=== PATIENT | male | born 1995 | race Caucasian/White ===

== ENCOUNTER 2017-07-02 14:42 | Outpatient (CLI) | payer OTHER | END 2017-07-02 14:43 | disposition critical access hospital (66) | LOC: EMS 14:42 | PROVIDERS: ATTEND Surgery | DX: R06.00 Dyspnea, unspecified (principal) | CPT/HCPCS: A0425; A0427 ==

== ENCOUNTER 2017-07-02 15:12 | Emergency (ER) | payer OTHER ==
[2017-07-02 15:16] VITALS: BP 147/89
--- NOTE | 2017-07-02 15:18 | ED Physician Documentation ---
PD HPI DYSPNEA - Stated complaint Stated Complaint: ASTHMA ATTACK - History obtained from History obtained from: Patient, EMS - History of Present Illness Timing - onset: How many weeks ago (4) Timing - onset during: Rest Timing - duration: Weeks (4) Timing - details: Gradual onset, Still present, Waxing and waning Inciting event(s): Out of meds, URI Improved by: Inhaler/neb Worsened by: Exertion, Coughing Associated symptoms: Cough, Wheezing, Chest pain / discomfort, Diaphoresis Similar symptoms before: Diagnosis (asthma) Recently seen: Not recently seen - Additional information Additional information: 22-year-old male with a history of asthma has run out of his albuterol inhaler. He is developed a cough and congestion about 1 month ago and symptoms have been waxing and waning in about 3 days ago he developed worsening and worsening shortness of breath and was unable to use an inhaler because he did not have his inhaler. Medics arrived and were able to provide a DuoNeb treatment and 125 mg of Solu-Medrol intravenously and the patient has some marked improvement. Review of Systems Constitutional: reports: Myalgias, Fatigue, Sweats. denies: Fever Eyes: denies: Decreased vision Ears: denies: Ear pain Nose: reports: Rhinorrhea / runny nose, Congestion Throat: denies: Sore throat Cardiac: reports: Chest pain / pressure. denies: Palpitations Respiratory: reports: Dyspnea, Cough, Wheezing GI: denies: Abdominal Pain, Nausea, Vomiting : denies: Dysuria, Frequency PD PAST MEDICAL HISTORY - Present Medications Home Medications: Ambulatory Orders Medication Instructions Recorded Confirmed Albuterol Sulf [Ventolin Hfa 1 - 2 puffs INH Q4HR PRN #1 inhaler 07/02/17 Inhaler] Albuterol Sulfate [Proair Hfa 07/02/17 Inhaler] Azithromycin [Zithromax] 250 mg PO DAILY #6 tablet 07/02/17 Fluticasone Propionate [Flovent 07/02/17 Diskus] Sertraline HCl 07/02/17 predniSONE [Deltasone] 10 mg PO DAILY #26 tablet 07/02/17 - Allergies Allergies/Adverse Reactions: Allergies Allergy/AdvReac Type Severity Reaction Status Date / Time No Known Drug Allergies Allergy Verified 07/02/17 15:16 PD ED PE NORMAL - Vitals Vital signs reviewed: Yes (tachy and hypertensive ) - General General: Alert and oriented X 3, No acute distress, Well developed/nourished - HEENT HEENT: Atraumatic, PERRL, EOMI, Other (The right TM is mildly inflamed and the left is markedly inflamed with loss of landmarks.) - Neck Neck: Supple, no meningeal sign, No bony TTP - Cardiac Cardiac: No murmur, Other (tachy to 110) - Respiratory Respiratory: Other (tachpneic with diminished breath sounds.) - Abdomen Abdomen: Soft, Non tender - Back Back: No CVA TTP, No spinal TTP - Derm Derm: Normal color, Warm and dry, No rash - Extremities Extremities: No deformity, No edema - Neuro Neuro: No motor deficit, No sensory deficit Eye Opening: Spontaneous Motor: Obeys Commands Verbal: Oriented GCS Score: 15 - Psych Psych: Normal mood, Normal affect Results - Vitals Vitals: Vital Signs - 24 hr /08/16 15:13 Temperature 36.4 C L Heart Rate 118 H Respiratory 18 Rate Blood Pressure 147/89 H O2 Saturation 98 Oxygen O2 Source Room air - Rads (name of study) 2 veiw chest Radiology: Prelim report reviewed (Impression: Normal two-view chest radiography.), EMP read indepedently, See rad report PD MEDICAL DECISION MAKING - ED course Complexity details: reviewed old records, reviewed results, re-evaluated patient , considered differential, d/w patient, d/w family ED course: 22-year-old male with a history of asthma has had an acute exacerbation and he did not have an inhaler with him he ended up having called the ambulance and have a ride into the hospital. He did get a DuoNeb treatment and in route and has marked improvement. He is ready to go home now. He received 125 mg of Solu -Medrol as well. He does have otitis media on examination and we will place him on some antibiotic as well as a course of prednisone. Departure - Departure Disposition: 01 Home, Self Care Clinical Impression: Exacerbation of asthma Qualifiers: Asthma severity: mild Asthma persistence: intermittent Qualified Code(s): J45.21 - Mild intermittent asthma with (acute) exacerbation Otitis media Qualifiers: Otitis media type: suppurative Chronicity: acute Laterality: bilateral Recurrence: not specified as recurrent Spontaneous tympanic membrane rupture: without spontaneous rupture Qualified Code(s): H66.003 - Acute suppurative otitis media without spontaneous rupture of ear drum, bilateral Condition: Stable Instructions: ED Bronchitis Asthmatic, ED Otitis Media Acute Adult Follow-Up: [facility] [Provider Group] Prescriptions: Albuterol Sulf [Ventolin Hfa Inhaler] 1 - 2 puffs INH Q4HR PRN #1 inhaler PRN Reason: Shortness Of Air/Wheezing Azithromycin [Zithromax] 250 mg PO DAILY #6 tablet predniSONE [Deltasone] 10 mg PO DAILY #26 tablet
--- NOTE | 2017-07-02 16:00 | XRAY Preliminary Report ---
Exam: XR CHEST 2 VIEW X-RAY IMPRESSION: Normal 2-view chest radiography. [facility] SITE ID: [id number]
--- NOTE | 2017-07-02 16:00 | XRAY Report ---
EXAM: CHEST RADIOGRAPHY EXAM DATE: 07/02/2017 03:50 PM. CLINICAL HISTORY: Decreased air movement . COMPARISON: The seventh. TECHNIQUE: 2 views. FINDINGS: Lungs/Pleura: No focal opacities evident. No pleural effusion. No pneumothorax. Normal volumes. Mediastinum: Heart and mediastinal contours are unremarkable. Other: None. IMPRESSION: Normal 2-view chest radiography. [facility] Referring Provider Line: [phone] SITE ID: [id number]
== END 2017-07-02 16:35 | disposition home or self-care (01) ==
LOC: ED 15:12
DX: J45.21 Mild intermittent asthma with (acute) exacerbation (principal); H66.003 Acute suppurative otitis media without spontaneous rupture of ear drum, bilateral
CPT/HCPCS: 71046; 99283

== ENCOUNTER 2017-07-14 01:14 | Outpatient (CLI) | payer OTHER | END 2017-07-14 01:15 | disposition critical access hospital (66) | LOC: EMS 01:14 | PROVIDERS: ATTEND Surgery | DX: R06.00 Dyspnea, unspecified (principal) | CPT/HCPCS: A0425; A0427 ==

== ENCOUNTER 2017-07-14 01:38 | Emergency (ER) | payer OTHER ==
[2017-07-14] MEDS ORDERED: methylPREDNISolone SUCCINATE 125 MG/2 ML VIAL IVP STA (01:41)
[2017-07-14] MEDS ORDERED: IPRATROPIUM/ALBUTEROL 3 ML NEB INH STA (01:41)
--- NOTE | 2017-07-14 01:42 | ED Physician Documentation ---
PD HPI DYSPNEA - Stated complaint Stated Complaint: SOA - History obtained from History obtained from: Patient, EMS - History of Present Illness Timing - onset: Today Timing - onset during: Rest Timing - details: Abrupt onset, Still present Inciting event(s): Exposure (ie smoke) Improved by: O2, Inhaler/neb Worsened by: Exertion, Coughing Associated symptoms: Cough, Wheezing. No: Fever Similar symptoms before: Work up / diagnostics, Treatment Recently seen: Emergency Dept - Additional information Additional information: Patient is a 22 year old male with a history of asthma who is presenting to the emergency department for shortness of breath and wheezing. according to patient and ems patient was recently seen in the ER for asthma exacerbation. patient had been getting better but today he thinks he was exposed to something in his closet and it set off another asthma attach. patient called ems. When ems arrived patient was saturating in the mid 80s. Review of Systems Constitutional: denies: Fever, Chills Eyes: denies: Decreased vision Ears: denies: Ear pain, Drainage/discharge Nose: denies: Rhinorrhea / runny nose, Congestion Throat: denies: Dental pain / toothache Cardiac: denies: Chest pain / pressure Respiratory: reports: Dyspnea, Cough, Wheezing GI: reports: Diarrhea. denies: Nausea, Vomiting : denies: Dysuria, Frequency Skin: denies: Rash, Lesions Musculoskeletal: denies: Extremity swelling Neurologic: denies: Generalized weakness, Focal weakness, Numbness, Altered mental status Immunocompromised: denies: Immunocompromised PD PAST MEDICAL HISTORY - Past Medical History Respiratory: Asthma - Past Surgical History Past Surgical History: No - Present Medications Home Medications: Ambulatory Orders Medication Instructions Recorded Confirmed Albuterol Sulf [Ventolin Hfa 1 - 2 puffs INH Q4HR PRN #1 inhaler 07/02/17 Inhaler] Albuterol Sulfate [Proair Hfa 07/02/17 Inhaler] Azithromycin [Zithromax] 250 mg PO DAILY #6 tablet 07/02/17 Fluticasone Propionate [Flovent 07/02/17 Diskus] Sertraline HCl 07/02/17 predniSONE [Deltasone] 10 mg PO DAILY #26 tablet 07/02/17 Albuterol 2.5 mg INH Q4H PRN #30 neb 07/14/17 Fluticasone/Salmeterol [Advair 1 each IH DAILY #1 disk.w.dev 07/14/17 250-50 Diskus] Ipratropium/Albuterol [Duoneb] 3 ml INH Q6H PRN #30 neb 07/14/17 predniSONE [Prednisone] 40 mg PO DAILY 5 Days tablet 07/14/17 - Allergies Allergies/Adverse Reactions: Allergies Allergy/AdvReac Type Severity Reaction Status Date / Time No Known Drug Allergies Allergy Verified 07/14/17 02:01 - Social History Does the pt smoke?: No Smoking Status: Never smoker PD ED PE NORMAL - Vitals Vital signs reviewed: Yes - General General: Alert and oriented X 3, No acute distress - HEENT HEENT: Atraumatic - Abdomen Abdomen: Soft, Non tender, Non distended - Derm Derm: Normal color, No rash - Extremities Extremities: No deformity, Normal ROM s pain, No calf tenderness / cord - Neuro Neuro: Alert and oriented X 3, No motor deficit, No sensory deficit, Normal speech Eye Opening: Spontaneous Motor: Obeys Commands Verbal: Oriented GCS Score: 15 - Psych Psych: Normal mood PD ED PE EXPANDED - Cardiac Cardiac: Tachy - Respiratory Respiratory: Accessory mm use, Wheezing, Right upper lobe, Left upper lobe. No : Rhonchi, Rales Results - Vitals Vitals: Vital Signs - 24 hr 07/14/17 07/14/17 07/14/17 01:40 02:15 02:51 Temperature 37.2 C Heart Rate 130 H 116 H Respiratory 18 20 Rate Blood Pressure 115/78 O2 Saturation 91 L 86 L 07/14/17 07/14/17 07/14/17 02:52 03:06 03:10 Temperature Heart Rate 110 H 107 H Respiratory 20 18 Rate Blood Pressure 115/74 O2 Saturation 89 L 95 07/14/17 03:42 Temperature Heart Rate 116 H Respiratory 16 Rate Blood Pressure O2 Saturation 93 Oxygen O2 Source Room air PD MEDICAL DECISION MAKING - ED course Complexity details: reviewed old records, reviewed results, re-evaluated patient , considered differential, d/w patient, d/w family ED course: Patient was seen and examined at bedside. Patient was started on addional duonebs. Patient improved but his hypoxia did not resolve. patient was treated with two additional albuterol treatments and terbutaline. Patient was educated on a spacer. After patient's treatments he stated that he as feeling much better. Patient was oxygenating in the low 90s but stated that he wanted to go home and that he would continue with his nebulizer machine at home. patient was with family who felt comfortable with the plan. patient required no further inpatient work up and was stable for discharge with outpatient follow up. Departure - Departure Disposition: , Self Care Clinical Impression: Exacerbation of asthma Condition: Good Instructions: Asthma Dc Follow-Up: primary,care provider [Other] - Within 3 Days Prescriptions: Albuterol 2.5 mg INH Q4H PRN #30 neb PRN Reason: Wheezing Fluticasone/Salmeterol [Advair 250-50 Diskus] 1 each IH DAILY #1 disk.w.dev Ipratropium/Albuterol [Duoneb] 3 ml INH Q6H PRN #30 neb PRN Reason: Asthma predniSONE [Prednisone] 40 mg PO DAILY 5 Days tablet Comments: Your symptoms today are being caused by an asthma exacerbation. You should continue with the nebulizer treatments at home. You should follow up with your doctor this week for re-evaluation. You may return to the emergency department at any time for new worsening or uncontrollable symptoms.
[2017-07-14] MEDS ORDERED: ALBUTEROL NEB 2.5 MG/3 ML INH STA (02:41)
[2017-07-14] MEDS ORDERED: TERBUTALINE 1 MG/ML VIAL SUBQ ONE ×2 (02:41→03:03)
[2017-07-14 03:11] VITALS: BP 115/74
== END 2017-07-14 04:11 | disposition home or self-care (01) ==
LOC: EDUNIT# → ED 01:38
DX: J45.901 Unspecified asthma with (acute) exacerbation (principal)
CPT/HCPCS: 94640; 96372; 99284

== ENCOUNTER 2019-05-20 10:47 | Emergency (ER) | payer MEDICAID, OTHER ==
[2019-05-20] MEDS ORDERED: ALBUTEROL NEB 2.5 MG/3 ML INH ONE (11:17)
[2019-05-20] MEDS ORDERED: ALBUTEROL NEB 2.5 MG/3 ML INH STA (11:20)
[2019-05-20] MEDS ORDERED: LORazepam 1 MG TABLET PO STA (12:07)
--- NOTE | 2019-05-20 12:09 | ED Physician Documentation ---
PD PAULINE HEENT - Stated complaint Stated Complaint: SOA/DIZZY/NAUSEA - Chief complaint Chief Complaint: Resp - History obtained from History obtained from: Patient - History of Present Illness Timing - onset: Other (24-year-old gentleman with history of asthma and anxiety. At baseline he takes Advair 200/50 for his out of asthma and a rescue inhaler. Over the last few days has had increased shortness of breath, anxiety, shakiness, nonproductive cough. He ran out of his inhaler a few days ago. He is not sleeping well because of the anxiety. He denies suicidal or homicidal ideation. On my evaluation he had already received a breathing treatment and feels like his breathing is much better but feeling still anxious. Denies pedal edema or calf pain. No chest pain.) Review of Systems Constitutional: denies: Fever, Chills Nose: denies: Rhinorrhea / runny nose, Congestion Throat: denies: Sore throat Cardiac: denies: Chest pain / pressure, Palpitations Respiratory: reports: Dyspnea, Cough PD PAST MEDICAL HISTORY - Past Medical History Respiratory: Asthma Psych: Anxiety - Past Surgical History Past Surgical History: No - Present Medications Home Medications: Ambulatory Orders Medication Instructions Recorded Confirmed Albuterol Sulf [Ventolin Hfa 1 - 2 puffs INH Q4HR PRN #1 inhaler 07/02/17 Inhaler] Albuterol Sulfate [Proair Hfa 07/02/17 Inhaler] Azithromycin [Zithromax] 250 mg PO DAILY #6 tablet 07/02/17 Fluticasone Propionate [Flovent 07/02/17 Diskus] Sertraline HCl 07/02/17 predniSONE [Deltasone] 10 mg PO DAILY #26 tablet 07/02/17 Albuterol 2.5 mg INH Q4H PRN #30 neb 07/14/17 Fluticasone/Salmeterol [Advair 1 each IH DAILY #1 disk.w.dev 07/14/17 250-50 Diskus] Ipratropium/Albuterol [Duoneb] 3 ml INH Q6H PRN #30 neb 07/14/17 predniSONE [Prednisone] 40 mg PO DAILY 5 Days tablet 07/14/17 Albuterol Sulf [Ventolin Hfa 1 - 2 puffs INH Q4HR PRN #1 inhaler 05/20/19 Inhaler] Lorazepam [Ativan] 1 mg PO TID PRN #10 tablet 05/20/19 predniSONE [Deltasone] 20 mg PO [id number] #21 tab 05/20/19 - Allergies Allergies/Adverse Reactions: Allergies Allergy/AdvReac Type Severity Reaction Status Date / Time No Known Drug Allergies Allergy Verified 07/14/17 02:01 - Social History Does the pt smoke?: No Smoking Status: Never smoker Does the pt drink ETOH?: No Does the pt have substance abuse?: No - POLST Patient has POLST: No PD ED PE NORMAL - Vitals Vital signs reviewed: Yes - General General: Alert and oriented X 3, No acute distress, Other (He appears visibly anxious) - HEENT HEENT: PERRL, EOMI - Neck Neck: Supple, no meningeal sign, No bony TTP - Cardiac Cardiac: RRR, No murmur - Respiratory Respiratory: No respiratory distress, Clear bilaterally - Abdomen Abdomen: Soft, Non tender - Extremities Extremities: No edema, No calf tenderness / cord - Neuro Neuro: Alert and oriented X 3, Normal speech - Psych Psych: Normal mood, Normal affect Results - Vitals Vitals: Vital Signs - 24 hr 05/20/19 05/20/19 05/20/19 11:09 11:17 11:24 Temperature 36.6 C Heart Rate 98 89 88 Respiratory 18 22 20 Rate Blood Pressure 138/100 H 165/91 H O2 Saturation 92 90 L Oxygen O2 Source Room air Oxygen Flow Rate 2 PD MEDICAL DECISION MAKING - ED course ED course: On my evaluation he had already received a breathing treatment with improvement in his wheezing but the anxiety was still overwhelming him for which he had received Ativan in the past and this was given here. No evidence of PE, ACS etc. Departure - Departure Disposition: 01 Home, Self Care Clinical Impression: Anxiety Exacerbation of asthma Qualifiers: Asthma severity: moderate Asthma persistence: persistent Qualified Code(s): J45.41 - Moderate persistent asthma with (acute) exacerbation Condition: Good Record reviewed to determine appropriate education?: Yes Instructions: Asthma Dc Prescriptions: Albuterol Sulf [Ventolin Hfa Inhaler] 1 - 2 puffs INH Q4HR PRN #1 inhaler PRN Reason: Shortness Of Air/Wheezing Lorazepam [Ativan] 1 mg PO TID PRN #10 tablet PRN Reason: Anxiety predniSONE [Deltasone] 20 mg PO [id number] #21 tab Comments: As discussed, although Ativan is a good short-term cure for your anxiety, its not a good long-term treatment so you need to talk with your doctor about that going forward. Return for new or worsening symptoms.
--- NOTE | 2019-05-20 12:13 | XRAY Report ---
Reason: difficulty breathing Procedure Date: 05/20/2019 Accession Number: [id number] / [id number] Procedure: XR - Chest 2 View X-Ray CPT Code: 35734 Final Report FULL RESULT: EXAM: CHEST RADIOGRAPHY EXAM DATE: 05/20/2019 11:39 AM. CLINICAL HISTORY: Difficulty breathing. COMPARISON: CHEST 2 VIEW 07/02/2017 3:16 PM. TECHNIQUE: 2 views. FINDINGS: Lungs/Pleura: Linear bibasilar opacities could reflect scarring. No other consolidation. Mediastinum: Heart and mediastinal contours are unremarkable. Other: None. IMPRESSION: 1. Linear bibasilar opacities could reflect scarring. No other airspace consolidation. 2. Normal heart size. [facility]
[2019-05-20 12:18] VITALS: BP 161/91
== END 2019-05-20 12:18 | disposition home or self-care (01) ==
LOC: ED 10:47
DX: J45.41 Moderate persistent asthma with (acute) exacerbation (principal); F41.9 Anxiety disorder, unspecified
CPT/HCPCS: 71046; 94640; 99283; J8499

== ENCOUNTER 2023-04-01 14:59 | Outpatient (CLI) | payer MEDICAID ==
--- NOTE | 2023-04-02 17:47 | Ultrasound Report ---
PROCEDURE: Abdomen Complete INDICATIONS: ELEVATED LIVER ENZYMES TECHNIQUE: Real-time scanning was performed of the abdominal and retroperitoneal organs, with image documentatio n. COMPARISON: None. FINDINGS: Liver: The liver measures 15.7 cm in length and demonstrates markedly increased echogenicity. Gallbladder: All bladder wall measures 3 mm in diameter. No stones, sludge, pericholecystic fluid or sonographic Yancey sign. Biliary ducts: Intrahepatic bile ducts are non-dilated. Extrahepatic bile duct caliber measures 4 m m. Normal is 6-7 mm or less in diameter, or 10 mm or less post-cholecystectomy. Pancreas: Visualized portions of the pancreas are sonographically normal. Spleen: Spleen is normal in size and homogeneous in echotexture. Kidneys: Kidneys are normal in size and echotexture. Right kidney measures 9.8 cm long; left kidney measures 10.4 cm long. No hydronephrosis or nephrolithiasis. No solid masses. No complex renal cys tic lesions which require follow-up. Aorta: Visualized aorta is normal in caliber at less than 3 cm. Distal aorta is not visualized. Iliacs: Proximal common iliac arteries are normal in caliber at less than 2.5 cm. Iliacs are not vi sualized. IVC: Intrahepatic inferior vena cava is patent. Miscellaneous: No free abdominal fluid. IMPRESSION: 1. Increased hepatic echogenicity suggesting fatty infiltration although other sources of hepatic nacho atosis cannot be excluded. 2. No cholelithiasis or findings to suggest choledocholithiasis or acute cholecystitis. Reviewed by: Shanell Kebede MD on 04/02/2023 5:46 PM PST Approved by: Shanell Kebede MD on 04/02/2023 5:46 PM PST Station ID: [id number]
== END 2023-04-01 15:00 | disposition home or self-care (01) ==
LOC: DI 14:59
PROVIDERS: ATTEND Family Medicine
DX: R74.9 Abnormal serum enzyme level, unspecified (principal)